=== PATIENT | female | born 1945 | race Hispanic/Latino ===

== ENCOUNTER 2018-04-08 09:05 | Emergency (ER) | payer OTHER ==
--- OUTSIDE RECORDS SUMMARY | 2018-04-08 09:09 | XMS REPORT | Clinical Summary ---
:1945 Author Organization [facility] Address [address] [place] [address] Care Team Providers Name Role Phone Maynor Soto DO Primary Care Provider Allergies Active Allergy Reactions Severity Noted Date Comments Ampicillin Anaphylaxis High 08/12/2016 No Known Drug Allergies 12/22/2015 Medications Medication Sig Dispensed Refills Start End Date Status Date amLODIPine (NORVASC) 5 Take 5 mg by 0 Active MG tablet mouth daily. hydrochlorothiazide Take 12.5 mg 0 Active (HYDRODIURIL) 12.5 MG by mouth tablet daily. ondansetron (ZOFRAN) 8 Take 8 mg by 0 Active MG tablet mouth every 8 (eight) hours as needed for nausea or vomiting. prochlorperazine Take 10 mg by 0 Active (COMPAZINE) 10 MG tablet mouth every 6 (six) hours as needed for nausea or vomiting. capecitabine (XELODA) Take by mouth 0 Active 500 mg chemo tablet 2 (two) times a day. traMADol (ULTRAM) 50 mg Take 50 mg by 0 10/08/19 Discontinued tablet mouth every 6 18 (six) hours as needed for moderate pain. lidocaine (XYLOCAINE) 5 Apply 50 g 0 07/19/19 % ointment topically as 8 18 needed for mild pain for up to 30 days. Apply to affected area as needed hydrocortisone Insert into 30 g 0 07/28/19 (PROCTOZONE-HC) 2.5 % the rectum 2 8 18 rectal cream (two) times a day for 10 days. traMADol (ULTRAM) 50 mg Take 1 tablet 40 tablet 0 10/18/19 tablet (50 mg total) 8 18 by mouth every 6 (six) hours as needed for moderate pain for up to 10 days. 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 Encounters Date Type Specialty Care Team Description 03/19/2018 Office Visit General Surgery Ethan Vail Anal stenosis (Primary Dx); MD Cristhian Anal fissure; Rectal pain; History of anal cancer 03/03/2018 Transcribe Orders Access Lisandro Bae Anal cancer (HCC) MD Boy (Primary Dx) 10/28/2017 Hospital Encounter Radiation Oncology Brandon Mesa MD 10/23/2017 Office Visit Gynecologic Cat Chiu Cancer of rectovaginal ( septum); Oncology MD Scott Hemorrhoids, unspecified hemorrhoid type 10/07/2017 Orders Only General Surgery Berta Pedraza MA 10/07/2017 Refill General Surgery Allie Francisco NP-C 10/01/2017 Office Visit General Surgery Ethan Vail History of anal MD Cristhian cancer (Primary Dx) Allie Francisco NP-C 09/17/2017 Documentation General Surgery Allie Francisco NP-C 09/15/2017 Orders Only General Surgery Ethan Vail MD 08/28/2017 Office Visit General Surgery Ethan Vail History of anal MD Cristhian cancer (Primary Dx) Allie Francisco NP-C 08/24/2017 Hospital Encounter Radiation Oncology Brandon Mesa MD 08/20/2017 Hospital Encounter Radiology Lisandro Bae Malignant neoplasm of anal canal; MD Boy Malignant neoplasm of overlapping sites of rectum, anus and anal canal 08/20/2017 Hospital Encounter Radiology Lisandro Bae Malignant neoplasm of anal canal; MD Boy Malignant neoplasm of overlapping sites of rectum, anus and anal canal 07/17/2017 Orders Only General Surgery Allie Francisco NP-C 06/18/2017 Office Visit General Surgery Ethan Vail Internal hemorrhoids with complication (Primary Dx); MD Cristhian History of anal cancer; Radiation adverse effect, sequela 06/12/2017 Office Visit Gynecologic Cat Chiu Cancer of Oncology MD Scott rectovaginal (septum) after 04/07/2017 Social History Tobacco Use Types Packs/Day Years Used Date Never Smoker Smokeless Tobacco: Never Used Alcohol Use Drinks/Week oz/Week Comments No Sex Assigned at Date Recorded Not on file Job Start Date Occupation Industry Not on file Not on file Not on file Travel History Travel Start Travel End No recent travel history available. Last Filed Vital Signs Vital Sign Reading Time Taken Blood Pressure 127/79 03/19/2018 8:44 AM [employer] Pulse 88 03/19/2018 8:44 AM [employer] Temperature 36.6 C (97.8 F) 08/28/2017 8:11 AM CDT Respiratory Rate 18 08/20/2017 10:05 AM CDT Oxygen Saturation - - Inhaled Oxygen Concentration - - Weight 79.8 kg (176 lb) 10/23/2017 8:24 AM CDT Height 152.4 cm (5') 10/23/2017 8:24 AM CDT Body Mass Index 34.37 10/23/2017 8:24 AM CDT Plan of Treatment Date Type Specialty Care Team Description 04/20/2018 Appointment Radiology Lisandro Bae MD [address] [place] [address]. [place] [address] [phone] 04/20/2018 Appointment Radiology Lisandro Bae MD [address] [place] [address]. [place] [address] [phone] 05/19/2018 Office Visit Gynecologic Oncology Cat Chiu MD [address] [facility] [address] [place] [address] [phone] 09/17/2018 Office Visit General Surgery Ethan Vail MD [address] [facility] [address] [place], [place] [id number] Health Maintenance Due Date Last Done Comments BREAST CANCER SCREENING 1997 COLON CANCER SCREENING 1997 SHINGLES VACCINES (1 of 2) 1997 PNEUMOCOCCAL-13 2012 INFLUENZA VACCINE 09/24/2017 12/22/2013, 11/23/2012 PNEUMOCOCCAL POLYSACCHARIDE VACCINE AGE 65 Completed 09/07/2012 AND OVER Procedures Procedure Name Priority Date/Time Associated Diagnosis Comments [facility] Routine 11/24/2017 CUSTOM ORDER [facility] Routine 10/30/2017 CUSTOM ORDER SURGICAL PATHOLOGY Routine 09/09/2017 REQUEST MRI PELVIS W WO Routine 08/20/2017 11:15 Malignant neoplasm Results for this CONTRAST AM CDT of anal canal procedure are in Malignant neoplasm the results of overlapping sites section. of rectum, anus and anal canal ESTIMATED GFR Routine 08/20/2017 10:08 Results for this AM CDT procedure are in the results section. POC CREATININE Routine 08/20/2017 10:08 Results for this AM CDT procedure are in the results section. PET CT SKULL BASE TO Routine 08/20/2017 9:12 Malignant neoplasm Results for this MID THIGH AM CDT of anal canal procedure are in Malignant neoplasm the results of overlapping sites section. of rectum, anus and anal canal POC GLUCOSE Routine 08/20/2017 7:57 Results for this AM CDT procedure are in the results section. after 04/07/2017 Results [facility] papsmear custom order (11/24/2017)Only the most recent of2 resultswithin the time period is included. Narrative Performed At Surgical pathology request (09/09/2017) Specimen Tissue Narrative Performed At MRI Pelvis W Wo Contrast (08/20/2017 11:15 AM CDT) Narrative Performed At EXAMINATION:MRI PELVIS W WO CONTRAST [facility] CLINICAL HISTORY:C21.1 Malignant neoplasm of anal canal, C21.8 Malignant neoplasm of overlapping sites of rectumanus and anal canal, c21.1 c21.8 TECHNIQUE: Multiplanar multisequence MR images of the pelvis were obtained pre - and post intravenous administration of Gadolinium. COMPARISON:PET/CT August 20, 2017, prior MRI 02/04/2017 IMPRESSION: 1.Reidentified is T2 hypointense fibrosis from 12-3 o'clock at the anorectal junction, compatible with treated disease. At this same level, there is focal area of somewhat rounded T2 hyperintensity (series 9 image 13), measuring 1.4 cm, previously measuring approximate 9 mm. And is therefore suspicious for recurrent disease, although there is no definite diffusion restriction or enhancement. Recommend correlation with direct inspection and biopsy . This is located at approximately 9 o'clock in the region of the anorectal junction, and there does appear to be some mass effect. 2.There is no suspicious adenopathy (N0 disease). 3.The urinary bladder is unremarkable. 4.The uterus is surgically absent. There is no adnexal mass. 5.No suspicious osseous lesions are seen. [facility]-[id number] Procedure Note Interface, Radiology Results - 08/21/2017 3:39 PM CDT EXAMINATION: MRI PELVIS W WO CONTRAST CLINICAL HISTORY: C21.1 Malignant neoplasm of anal canal, C21.8 Malignant neoplasm of overlapping sites of rectum anus and anal canal, c21.1 c21.8 TECHNIQUE: Multiplanar multisequence MR images of the pelvis were obtained pre - and post intravenous administration of Gadolinium. COMPARISON: PET/CT August 20, 2017, prior MRI 02/04/2017 IMPRESSION: 1. Reidentified is T2 hypointense fibrosis from 12-3 o'clock at the anorectal junction, compatible with treated disease. At this same level, there is focal area of somewhat rounded T2 hyperintensity (series 9 image 13), measuring 1.4 cm , previously measuring approximate 9 mm. And is therefore suspicious for recurrent disease, although there is no definite diffusion restriction or enhancement. Recommend correlation with direct inspection and biopsy. This is located at approximately 9 o'clock in the region of the anorectal junction, and there does appear to be some mass effect. 2. There is no suspicious adenopathy (N0 disease). 3. The urinary bladder is unremarkable. 4. The uterus is surgically absent. There is no adnexal mass. 5. No suspicious osseous lesions are seen. [facility]-[id number] Performing Organization Address City/State/Zipcode Phone Number [facility] [address] [place] [address] Estimated GFR (08/20/2017 10:08 AM CDT) GFR Non Af Amer 71 mL/min/1.73 m2 [facility] DEPARTMENT OF PATHOLOGY AND GENOMIC MEDICINE GFR Af Amer 86 mL/min/1.73 m2 [facility] DEPARTMENT OF Comment: PATHOLOGY AND GENOMIC Chronic kidney disease: <60 mL/min/1.73m2 MEDICINE Kidney failure: <15 mL/min/1.73m2 The estimated GFR is calculated from the IDMS-traceable Modification of Diet in Renal Disease Equation. The accuracy of the calculation is poor when the creatinine is normal. Calculated values >90 mL/min/1.73m2 are not reported. This equation has not been validated in children (<18 years), women, the elderly (>70 years), or ethnic groups other than Caucasians and Americans. Specimen Blood Performing Organization Address City/State/Zipcode Phone Number [facility] DEPARTMENT OF PATHOLOGY AND [address] [place] [phone] [facility] POC creatinine (08/20/2017 10:08 AM CDT) POC creatinine 0.8 0.5 - 0.9 mg/dl [facility] DEPARTMENT OF PATHOLOGY Comment: AND [facility] Meter ID: [id number] Jigsaw Operator: Minh Laguerre Specimen Blood Performing Organization Address City/State/Zipcode Phone Number [facility] DEPARTMENT OF PATHOLOGY AND [address] [place] [phone] [facility] PET/CT Skull Base To Mid Thigh (08/20/2017 9:12 AM CDT) Narrative Performed At PROCEDURE:PET CT SKULL BASE TO MID THIGH [facility] INDICATION:Restaging malignant neoplasm of anal canal, rectal cancer, subsequent treatment strategy. TECHNIQUE:Blood glucose measured at the time of injection was 98 mg/dL. The patient was then injected with 12.5 mCi of 18F-FDG, IV.Approximately one hour later, PET images were acquired from the skull base to the mid thighs. Corresponding, low dose, non-contrast CT scanning was performed as part of the attenuation correction process.Automated dose exposure control was utilized. COMPARISON:PET CT scan dated 02/04/2017. FINDINGS: Head and neck:No suspicious brain uptake.Normal uptake is seen in the visualized sinuses, orbits, nasopharynx, and oropharynx.Uptake by the larynx is normal.No suspicious neck lymph node uptake. Chest:No abnormal mediastinal, hilar, or axillary lymph node uptake.No suspicious pulmonary uptake.Stable subpleural 4 mm right middle lobe nodule. Abdomen:Stable 2.5 cm low-density lesion in the hepatic dome, compatible with a hemangioma.Normal uptake is seen in the stomach, spleen, pancreas, adrenal glands, and liver.No abnormal retroperitoneal or mesenteric lymph node uptake.Physiologic bowel uptake. Pelvis:Focal uptake in the inferior rectum demonstrates an SUV of 4.9.It previously measured 4.8.No abnormal pelvic sidewall or inguinal lymph node uptake.No abnormal lymph node uptake in the rectosigmoid mesentery. Review of the osseous structures demonstrates no suspicious uptake. IMPRESSION: 1.Stable appearance to the inferior rectum, with mild uptake.Lack of interval progression favors treated disease.Correlate with upcoming pelvic MRI. 2.No evidence for metastatic disease. [facility]-[id number] Procedure Note [facility], Radiology Results Incoming - 08/20/2017 9:33 AM CDT PROCEDURE: PET CT SKULL BASE TO MID THIGH INDICATION: Restaging malignant neoplasm of anal canal, rectal cancer, subsequent treatment strategy. TECHNIQUE: Blood glucose measured at the time of injection was 98 mg/dL. The patient was then injected with 12.5 mCi of 18F-FDG, IV. Approximately one hour later, PET images were acquired from the skull base to the mid thighs. Corresponding, low dose, non-contrast CT scanning was performed as part of the attenuation correction process. Automated dose exposure control was utilized. COMPARISON: PET CT scan dated 02/04/2017. FINDINGS: Head and neck: No suspicious brain uptake. Normal uptake is seen in the visualized sinuses, orbits, nasopharynx, and oropharynx. Uptake by the larynx is normal. No suspicious neck lymph node uptake. Chest: No abnormal mediastinal, hilar, or axillary lymph node uptake. No suspicious pulmonary uptake. Stable subpleural 4 mm right middle lobe nodule. Abdomen: Stable 2.5 cm low-density lesion in the hepatic dome, compatible with a hemangioma. Normal uptake is seen in the stomach, spleen, pancreas, adrenal glands, and liver. No abnormal retroperitoneal or mesenteric lymph node uptake. Physiologic bowel uptake. Pelvis: Focal uptake in the inferior rectum demonstrates an SUV of 4.9. It previously measured 4.8. No abnormal pelvic sidewall or inguinal lymph node uptake. No abnormal lymph node uptake in the rectosigmoid mesentery. Review of the osseous structures demonstrates no suspicious uptake. IMPRESSION: 1. Stable appearance to the inferior rectum, with mild uptake. Lack of interval progression favors treated disease. Correlate with upcoming pelvic MRI. 2. No evidence for metastatic disease. [facility]-[id number] Performing Organization Address City/State/Zipcode Phone Number [facility] [address] [place] [address] POC glucose (08/20/2017 7:57 AM CDT) POC glucose 98 65 - 99 mg/dL [facility] DEPARTMENT OF PATHOLOGY AND Comment: GENOMIC MEDICINE No Action Needed Meter ID: [id number] Jigsaw Operator: Annamarie Performing Organization Address City/State/Zipcode Phone Number [facility] DEPARTMENT OF PATHOLOGY AND [address] [place] [phone] GENOMIC MEDICINE after 04/07/2017 Insurance Payer Benefit Plan / Group Subscriber ID Type Phone Address MEDICARE MEDICARE PART A AND B xxxxxxxxxx Medicare [place], [place] [employer] xxxxxxxx Commercial ([place]) [place] [address] Advance Directives Patient has advance care planning documents on file. For more information, please contact:[facility] [id number] [place] [address]
--- OUTSIDE RECORDS SUMMARY | 2018-04-08 09:10 | XMS REPORT | Clinical Summary ---
:1945 Author Organization [facility] Address [address] [place] [address] Care Team Providers Name Role Phone Darell Soto Primary Care Provider Allergies No Known Allergies Medications No known medications Active Problems Problem Noted Date History of anal cancer 09/08/2017 Encounters Date Type Specialty Care Team Description 09/08/2017 Anesthesia Event Danielito Wong MD 09/08/2017 Surgery Ethan Vail,RECTUM MD Cristhian 09/08/2017 Hospital Encounter Ethan Vail History of anal MD Cristhian cancer 09/05/2017 Hospital Encounter Pre-Admission Resource, Oqmt Testing Preadmit Phone after 04/07/2017 Social History Tobacco Use Types [...] Vital Sign Reading Time Taken Blood Pressure 140/68 09/08/2017 6:50 PM CDT Pulse 68 09/08/2017 6:50 PM CDT Temperature 36.6 C (97.9 F) 09/08/2017 6:50 PM CDT Respiratory Rate 20 09/08/2017 6:50 PM CDT Oxygen Saturation 99% 09/08/2017 6:50 PM CDT Inhaled Oxygen Concentration - - Weight 81.6 kg (179 lb 14.3 oz) 09/08/2017 12:55 PM CDT Height 152.4 cm (5') 09/08/2017 12:55 PM CDT Body Mass Index 35.13 09/08/2017 12:55 PM CDT Plan of Treatment Not on file Procedures Procedure Name Priority Date/Time Associated Diagnosis Comments TISSUE EXAM AP Routine 09/08/2017 4:57 PM Results for this CDT procedure are in the results section. EUA,RECTUM 09/08/2017 2:24 PM History of anal CDT cancer Case Notes OK'D BY ROMINA [facility] V.V 4:10 09/02 POCT-GLUCOSE METER Routine 09/08/2017 12:48 PM CDT HEMOGLOBIN Routine 09/08/2017 12:26 PM CDT BUN AND CREATININE Routine 09/08/2017 12:26 PM CDT after 04/07/2017 Results Tissue Exam (09/08/2017 4:57 PM CDT) Case Report Surgical Pathology Report Case: [id number] [facility] Authorizing Provider:Ethan Vail MDCollected: 09/08/2017 1657 [facility] Ordering Location: [facility] Received: 09/09/2017 0806 SERVICES Pathologist: Gin Hare MD Specimen:Biopsy, Anus, anal biopies DIAGNOSIS ANUS, BIOPSIES: [facility] - FRAGMENTS OF SQUAMOCOLUMNAR JUNCTION [facility] - NEGATIVE FOR DYSPLASIA OR MALIGNANCY Signing Pathologist Direct Phone Line: [phone] COMMENT The biopsy displays [facility] extensive cautery artefact, [facility] precluding accurate evaluation. CPT Code(s) 98901 [facility] CLINICAL HISTORY History of anal cancer [facility] SPECIMEN SOURCE Anal biopsies [facility] GROSS DESCRIPTION The specimen is received in [facility] a formalin-filled container [facility] labeled with the patient's information and labeled "anal biopsies" and consists of a dried hemorrhagic tissue in two pieces measuring 0.4 and 0.6 cm, submitted in A1. CG/ew MICROSCOPIC DESCRIPTION PERFORMED [facility] Specimen Tissue - Biopsy, Anus Performing Organization Address City/State/Zipcode Phone Number [facility] [phone] [place] [address] CENTER POC-Glucose meter (09/08/2017 12:48 PM CDT) POC-Glucose Meter 94Comment: TESTED AT 70 - 110 mg/dL [facility] [address] [place] [address] Specimen Blood Performing Organization Address City/State/Zipcode Phone Number [address] [address] [phone] CENTER BUN and Creatinine (09/08/2017 12:26 PM CDT) BUN 19 7 - 21 mg/dL [facility] Creatinine 0.83 0.57 - 1.25 mg/dL [facility] EGFR 68Comment: ESTIMATED GFR IS mL/min/1.73 sq m [facility] NOT ACCURATE CREATININE [facility] CLEARANCE IN PREDICTING GLOMERULAR FILTRATION RATE. ESTIMATED GFR IS NOT APPLICABLE FOR DIALYSIS PATIENTS. Specimen Blood Performing Organization Address City/[facility]/Zipcode Phone Number [address] [address] [phone] [place] Hemoglobin (09/08/2017 12:26 PM CDT) Hemoglobin 12.5 11.2 - 15.7 GM/DL [facility] Specimen Blood Performing Organization Address City/State/Zipcode Phone Number [address] [address] CENTER after 04/07/2017 Insurance Payer Benefit Plan / Group Subscriber ID Type Phone Address MEDICARE MEDICARE A B xxxxxxxxxx Medicare MCR SUPPLEMENT/INDIVIDUAL [employer] xxxxxxxx [facility] [place] [address]
--- OUTSIDE RECORDS SUMMARY | 2018-04-08 09:10 | XMS REPORT ---
:1945 Author [facility] Address [address] [place] [address] [address] [place] [address] Care Team Providers Name Role Phone ASHKAN VAIL Unavailable Unavailable Problems This patient has no known problems. Allergies, Adverse Reactions, Alerts This patient has no known allergies or adverse reactions. Medications This patient has no known medications. Results Test Description Test Time Test Comments Text Results Atomic Results Result Comments TISSUE EXAM 2017-09-10 16:18:00 Surgical Pathology Report Case: [id number] Authorizing Provider: Ashkan Vail MD Collected: 09/08/2017 0217 Ordering Location: [facility] Received: 09/09/2017 0806 SERVICES Pathologist: Gin Hare MD Specimen: Biopsy, Anus, anal biopies ANUS, BIOPSIES: - FRAGMENTS OF SQUAMOCOLUMNAR JUNCTION - NEGATIVE FOR DYSPLASIA OR MALIGNANCY Signing Pathologist Direct Phone Line: [phone] signed by Gin Hare MD on 09/10/2017 at 4:18 PMThe biopsy displays extensive cautery artefact, precluding accurate evaluation. [id number] of anal cancerAnal biopsiesThe specimen is received in a formalin-filled container labeled with the patient's information and labeled "anal biopsies" and consists of a dried hemorrhagic tissue in two pieces measuring 0.4 and 0.6 cm, submitted in A1. CG/ew PERFORMED BUN AND CREATININE 2017-09-08 13:26:00 Test Item Value Reference Range Comments BLOOD UREA NITROGEN (BEAKER) 19 mg/dL 7-21 (test lrpz=673) CREATININE (BEAKER) (test 0.83 mg/dL 0.57-1.25 sdjq=763) EGFR (BEAKER) (test 68 mL/min/1.73 sq m ESTIMATED GFR IS NOT bnqq=[id number]) ACCURATE CREATININE CLEARANCE IN PREDICTING GLOMERULAR FILTRATION RATE. ESTIMATED GFR IS NOT APPLICABLE FOR DIALYSIS PATIENTS. [id number] 13:01:00 Test Item Value Reference Range Comments HEMOGLOBIN (MACROS) (test bkxu=707) 12.5 GM/DL 11.2-15.7 POCT-GLUCOSE [id number] 12:51:00 Test Item Value Reference Range Comments POC-GLUCOSE METER (MARCOS) 94 mg/dL 70-110 TESTED AT [place] [address] PATRICIA (test bigo=[id number]) [facility] [id number]
--- NOTE | 2018-04-08 10:32 | RAD REPORT ---
EXAM DESCRIPTION: RAD - Chest Pa And Lat (2 Views) - 04/08/2018 10:26 am CLINICAL HISTORY: COUGH Chest pain. COMPARISON: Chest Pa And Lat (2 Views) dated 08/29/2016; Chest Single View dated 06/28/2015; CHEST PA AN D LAT 2 VIEW dated 03/23/2015; CHEST SINGLE VIEW dated 07/13/2012 FINDINGS: The lungs are clear. Tortuous thoracic aorta is seen. Heart size is normal. No displaced f ractures. IMPRESSION: No acute finding suspected. Tortuous thoracic aorta.
--- NOTE | 2018-04-08 11:05 | ER ---
Nurse's Notes [facility] Name: Anitra Ross Age: 73 yrs Sex: Female : 1945 Arrival Date: 04/08/2018 Time: 09:08 Bed 20 Private MD: Maynor Soto H Diagnosis: Bronchitis, not specified as acute or chronic Presentation: 04/08 09:17 Presenting complaint: Patient states: cough, sore throat, decreased appetite and body ss aches x 3 days. Transition of care: patient was not received from another setting of care. Onset of symptoms was April 05, 2018. Risk Assessment: Do you want to hurt yourself or someone else? Patient reports no desire to harm self or others. Initial Sepsis Screen: Does the patient meet any 2 criteria? No. Patient's initial sepsis screen is negative. Does the patient have a suspected source of infection? No. Patient's initial sepsis screen is negative. Care prior to arrival: None. 09:17 Method Of Arrival: Ambulatory ss 09:17 Acuity: KRISTIE 4 ss Historical: - Allergies: 09:18 Bactrim; ss - PMHx: 09:18 Cancer; colon; Hypertension; hypomagnesia; ss - PSHx: 09:18 right foot surgery; Hysterectomy; Mastectomy, Left; Mastectomy, Right; ss - Immunization history:: Adult Immunizations up to date. - Social history:: Smoking status: Patient/guardian denies using tobacco. - Ebola Screening: : Patient denies exposure to infectious person Patient denies travel to an Ebola-affected area in the 21 days before illness onset. - Family history:: not pertinent. - Hospitalizations: : No recent hospitalization is reported. Screenin:30 Abuse screen: Denies threats or abuse. Denies injuries from another. Nutritional hb screening: No deficits noted. Tuberculosis screening: No symptoms or risk factors identified. Fall Risk None identified. Assessment: 09:30 General: Appears in no apparent distress. Behavior is calm, cooperative. Pain: Pain hb currently is 8 out of 10 on a pain scale. Neuro: Level of Consciousness is awake, alert, obeys commands, Oriented to person, place, time, situation. Cardiovascular: Capillary refill < 3 seconds Patient's skin is warm and dry. Respiratory: Airway is patent Respiratory effort is even, unlabored, Respiratory pattern is regular, symmetrical, Breath sounds are clear bilaterally. GI: No signs and/or symptoms were reported involving the gastrointestinal system. : No signs and/or symptoms were reported regarding the genitourinary system. EENT: No signs and/or symptoms were reported regarding the EENT system. Derm: Skin is intact, is healthy with good turgor, Skin is pink, warm \T\ dry. Musculoskeletal: No signs and/or symptoms reported regarding the musculoskeletal system. 10:30 Reassessment: Patient appears in no apparent distress at this time. No changes from aj1 previously documented assessment. Patient and/or family updated on plan of care and expected duration. Pain level reassessed. Patient is alert, oriented x 3, equal unlabored respirations, skin warm/dry/pink. Vital Signs: 09:18 BP 161 / 101; Pulse 72; Resp 16; Temp 97.9(O); Pulse Ox 97% on R/A; Weight 81.19 kg; ss Height 5 ft. 0 in. (152.40 cm); Pain 8/10; 09:18 Body Mass Index 34.96 (81.19 kg, 152.40 cm) ED Course: 09:08 Patient arrived in ED. sb2 09:09 Maynor Soto DO is Private Physician. sb2 09:17 Triage completed. ss 09:18 Arm band placed on right wrist. ss 09:26 Bill Llanes MD is Attending Physician. rn 09:28 Patient has correct armband on for positive identification. Bed in low position. Call hb light in reach. Side rails up X 1. 10:19 Patient moved to radiology via wheelchair. jb2 10:26 X-ray completed. Patient tolerated procedure well. Patient moved back from radiology. jb2 10:31 XRAY Chest Pa And Lat (2 Views) In Process Unspecified. EDMS 10:48 Strep swab sent to lab. dh3 11:10 No provider procedures requiring assistance completed. Patient did not have IV access hb during this emergency room visit. Administered Medications: No medications were administered Outcome: 11:05 Discharge ordered by . rn 11:10 Discharged to home ambulatory, with significant other. hb 11:10 Condition: stable 11:10 Discharge instructions given to patient, significant other, Instructed on discharge instructions, follow up and referral plans. medication usage, Demonstrated understanding of instructions, follow-up care, medications, Prescriptions given X 2. 11:14 Patient left the ED. aj1 Signatures: Dispatcher [employer] EDCally Salazar RN RN George Naqvi Roman, MD MD rn Smirch, Shelby, RN RN ss Baxter, Heather, RN RN hb Herrera, Deanna [facility] Amie Hollingsworth 2
--- NOTE | 2018-04-08 11:06 | EDPHYS ---
Physician Documentation [facility] Name: Anitra Ross Age: 73 yrs Sex: Female : 1945 Arrival Date: 04/08/2018 Time: 09:08 Bed 20 Private MD: Maynor Soto H ED Physician Bill Llanes HPI: 04/08 09:51 This 73 yrs old Female presents to ER via Ambulatory with complaints of Flu rn Symptoms. 09:51 The patient or guardian reports cough, flu symptoms. Onset: The symptoms/episode rn began/occurred 3 day(s) ago. Severity of symptoms: At their worst the symptoms were mild, in the emergency department the symptoms are unchanged. Modifying factors: The symptoms are alleviated by nothing, the symptoms are aggravated by nothing. The patient has experienced similar episodes in the past. Reports sent here by urgent care for cough and evaluation of pneumonia, reports 3 days of chills/cough/congestion, reports doesn't feel like previous pneumonia. . Historical: - Allergies: 09:18 Bactrim; ss - PMHx: 09:18 Cancer; colon; Hypertension; hypomagnesia; ss - PSHx: 09:18 right foot surgery; Hysterectomy; Mastectomy, Left; Mastectomy, Right; ss - Immunization history:: Adult Immunizations up to date. - Social history:: Smoking status: Patient/guardian denies using tobacco. - Ebola Screening: : Patient denies exposure to infectious person Patient denies travel to an Ebola-affected area in the 21 days before illness onset. - Family history:: not pertinent. - Hospitalizations: : No recent hospitalization is reported. ROS: 09:51 Constitutional: Negative for weight loss, Eyes: Negative for injury, pain, redness, and rn cardiovascular icu, Neck: Negative for injury, pain, and swelling, Cardiovascular: Negative for chest pain, palpitations, and edema, Respiratory: Negative for pleuritic chest pain Abdomen/GI: Negative for abdominal pain, nausea, vomiting, diarrhea, and constipation, MS/Extremity: Negative for injury and deformity, Skin: Negative for injury, rash, and discoloration, Neuro: Negative for headache, numbness, tingling, and seizure. Exam: 09:51 Constitutional: This is a well developed, well nourished patient who is awake, alert, rn and in no acute distress. Head/Face: Normocephalic, atraumatic. Eyes: Pupils equal round and reactive to light, extra-ocular motions intact. Lids and lashes normal. Conjunctiva and sclera are non-icteric and not injected. Cornea within normal limits. Periorbital areas with no swelling, redness, or edema. ENT: MMM, no stridor, no oral lesions Neck: + tender cervical LAD, bilateral Cardiovascular: Regular rate and rhythm. No pulse deficits. Respiratory: Lungs have equal breath sounds bilaterally, clear to auscultation. No increased work of breathing, no retractions or nasal flaring. Abdomen/GI: soft, non-tender Skin: Warm, dry MS/ Extremity: Pulses equal, no cyanosis. Neurovascular intact. Full, normal range of motion. Equal circumference. Neuro: Awake and alert, GCS 15, oriented to person, place, time, and situation. Cranial nerves II-XII grossly intact. Motor strength 5/5 in all extremities. Sensory grossly intact. Cerebellar exam normal. Normal gait. Vital Signs: 09:18 BP 161 / 101; Pulse 72; Resp 16; Temp 97.9(O); Pulse Ox 97% on R/A; Weight 81.19 kg; ss Height 5 ft. 0 in. (152.40 cm); Pain 8/10; 09:18 Body Mass Index 34.96 (81.19 kg, 152.40 cm) ss MDM: 09:26 Patient medically screened. rn 11:05 Differential Diagnosis: Bronchitis Influenza Upper Respiratory Infection Viral Syndrome rn Pneumonia. Data reviewed: vital signs, nurses notes, lab test result(s), radiologic studies, plain films, and as a result, I will discharge patient. Counseling: I had a detailed discussion with the patient and/or guardian regarding: the historical points, exam findings, and any diagnostic results supporting the discharge/admit diagnosis, lab results, radiology results, the need for outpatient follow up, to return to the emergency department if symptoms worsen or persist or if there are any questions or concerns that arise at home. Special discussion: I discussed with the patient/guardian in detail that at this point there is no indication for admission to the hospital. It is understood, however, that if the symptoms persist or worsen the patient needs to return immediately for re-evaluation. 04/08 09:19 Order name: Flu; Complete Time: 10:08 ss 04/08 10:08 Order name: Strep; Complete Time: 11:04 rn 04/08 10:08 Order name: XRAY Chest Pa And Lat (2 Views); Complete Time: 10:39 rn 04/08 11:04 Order name: Throat Culture EDMS Administered Medications: No medications were administered Disposition: 04/08/18 11:05 Discharged to Home. Impression: Bronchitis, not specified as acute or chronic. - Condition is Stable. - Discharge Instructions: Acute Bronchitis, Adult, Cough, Adult. - Prescriptions for Zithromax Z- Nacho 250 mg Oral Tablet - take 1 tablet by ORAL route as directed for 5 days Day 1 - take two (2) tablets one time. Day 2, 3, 4 , 5 take one (1) tablet once daily.; 6 tablet. Albuterol Sulfate 90 mcg/actuation - inhale 1-2 puff by INHALATION route every 4-6 hours; 1 Inhaler. - Medication Reconciliation Form, Thank You Letter, Antibiotic Education, Prescription Opioid Use form. - Follow up: Private Physician; When: As needed; Reason: Recheck today's complaints, Re-evaluation by your physician. - Problem is new. - Symptoms have improved. Signatures: Dispatcher [employer] EDCally Salazar RN RN aj1 Bill Llanes MD MD rn Smirch, Shelby, RN RN ss Corrections: (The following items were deleted from the chart) 11:14 11:05 04/08/2018 11:05 Discharged to Home. Impression: Bronchitis, not specified as aj1 acute or chronic. Condition is Stable. Forms are Medication Reconciliation Form, Thank You Letter, Antibiotic Education, Prescription Opioid Use. Follow up: Private Physician; When: As needed; Reason: Recheck today's complaints, Re-evaluation by your physician. Problem is new. Symptoms have improved. rn
[2018-04-08 11:19] VITALS: BP 161/101; TEMP 97.9; O2SAT 97
== END 2018-04-08 11:14 | disposition home or self-care (01) ==
LOC: ER 09:05
DX: J40 Bronchitis, not specified as acute or chronic (principal); I10 Essential (primary) hypertension; Z85.038 Personal history of other malignant neoplasm of large intestine
CPT/HCPCS: 71046; 87070; 87081; 87804; 99283

== ENCOUNTER 2018-09-26 08:40 | Emergency (ER) | payer OTHER ==
--- OUTSIDE RECORDS SUMMARY | 2018-09-26 08:43 | XMS REPORT ---
:1945 [facility] Organization [facility] Address [address] [place] [address] [address] [place] [address] Care Team Providers Name Role Phone ASHKAN VAIL Unavailable Unavailable Problems This patient has no known problems. Allergies, Adverse Reactions, Alerts This patient has no known allergies or adverse reactions. Medications This patient has no known medications. Results Test Description Test Time Test Comments Text Results Atomic Results Result Comments TISSUE EXAM 2017-09-10 16:18:00 Surgical Pathology Report Case: [id number] Authorizing Provider: Ashkan Vail MD Collected: 09/08/2017 1637 Ordering Location: [facility] Received: 09/09/2017 0806 SERVICES Pathologist: Gin Hare MD Specimen: Biopsy, Anus, anal biopies ANUS, BIOPSIES: - FRAGMENTS OF SQUAMOCOLUMNAR JUNCTION - NEGATIVE FOR DYSPLASIA OR MALIGNANCY Signing Pathologist Direct Phone Line: [phone] signed by Gin Hare MD on 09/10/2017 at 4:18 PMThe biopsy displays extensive cautery artefact, precluding accurate evaluation. [id number] of anal cancerAnal biopsiesThe specimen is received in a formalin-filled container labeled with the patient's information and labeled "anal biopsies" and consists of a dried hemorrhagic tissue in two pieces measuring 0.4 and 0.6 cm, submitted in A1. CG/ew PERFORMED BUN AND CREATININE 2017-09-08 13:26:00 Test Item Value Reference Range Comments BLOOD UREA NITROGEN (BEAKER) 19 mg/dL 7-21 (test xnyh=902) CREATININE (BEAKER) (test 0.83 mg/dL 0.57-1.25 sfyg=728) EGFR (BEAKER) (test 68 mL/min/1.73 sq m ESTIMATED GFR IS NOT mjih=3464) ACCURATE CREATININE CLEARANCE IN PREDICTING GLOMERULAR FILTRATION RATE. ESTIMATED GFR IS NOT APPLICABLE FOR DIALYSIS PATIENTS. [id number] 13:01:00 Test Item Value Reference Range Comments HEMOGLOBIN (MARCOS) (test epup=408) 12.5 GM/DL 11.2-15.7 POCT-GLUCOSE [id number] 12:51:00 Test Item Value Reference Range Comments POC-GLUCOSE METER (MARCOS) 94 mg/dL 70-110 TESTED AT [place] [address] [address] (test ykuc=9130) [facility] [id number]
--- OUTSIDE RECORDS SUMMARY | 2018-09-26 08:43 | XMS REPORT | Clinical Summary ---
:1945 Author Organization [facility] Address [address] [place] [address] Care Team Providers Name Role Phone Darell Soto Primary Care Provider Allergies No Known Allergies Medications No known medications Active Problems Problem Noted Date History of anal cancer 09/08/2017 Social History Tobacco Use Types Packs/Day Years Used Date Never Smoker Smokeless Tobacco: Never Used Alcohol Use Drinks/Week oz/Week Comments No Sex Assigned at Date Recorded Not on file Job Start Date Occupation Industry Not on file Not on file Not on file Travel History Travel Start Travel End No recent travel history available. Last Filed Vital Signs Not on file Plan of Treatment Not on file Results Not on fileafter 09/25/2017 Insurance Payer Benefit Plan / Group Subscriber ID Type Phone Address MEDICARE MEDICARE A B xxxxxxxxxx Medicare MCR SUPPLEMENT/INDIVIDUAL MUTUAL OF JC xxxxxxxx [employer] Brian [place] (Home) [place] [address]
--- OUTSIDE RECORDS SUMMARY | 2018-09-26 08:43 | XMS REPORT | Clinical Summary ---
:1945 Author Organization [facility] Address [address] [place] [address] Care Team Providers Name Role Phone Maynor [...] 50 mg Take 50 mg by 0 10/07/ Discontinued tablet mouth every 6 18 (six) hours as needed for moderate pain. traMADol (ULTRAM) 50 mg Take 1 tablet [...] Encounters Date Type Specialty Care Team Description 09/17/2018 Office Visit General Surgery Ethan Vail History of anal cancer ( Primary Dx); MD Cristhian Radiation proctitis; Internal hemorrhoids with complication; Anal fissure 06/30/2018 Office Visit Gynecologic Cat Chiu Malignant neoplasm Oncology MD Scott of rectovaginal (septum) (HCC) (Primary Dx) 04/28/2018 Transcribe Orders Access Lisandro Bae Anal linda (HCC) MD Boy (Primary Dx) 04/20/2018 Hospital Encounter Radiology Lisanrdo Bae Anal cancer (HCC) MD Boy 04/20/2018 Hospital Encounter Radiology Lisandro Bae Anal cancer (HCC) MD Boy 03/19/2018 Office Visit General Surgery Ethan Vail [...] Cristhian cancer (Primary Dx) Allie Francisco NP-C after 09/25/2017 Social History Tobacco Use Types Packs/Day Years [...] Vital Sign Reading Time Taken Blood Pressure 145/89 09/17/2018 8:11 AM CDT Pulse 72 09/17/2018 8:11 AM CDT Temperature 36.7 C (98.1 F) 09/17/2018 8:11 AM CDT Respiratory Rate - - Oxygen Saturation - - Inhaled Oxygen Concentration - - Weight 80.3 kg (177 lb) 06/30/2018 8:40 AM CDT Height 152.4 cm (5') 06/30/2018 8:40 AM CDT Body Mass Index 34.57 06/30/2018 8:40 AM CDT Plan of Treatment Date Type Specialty Care Team Description 10/27/2018 Appointment Radiology Lisandro Bae MD [address] [facility] [place] [address] [phone] 10/27/2018 Appointment Radiology Lisandro Bae MD [address] [facility] [facility] [place] [address] [phone] 12/31/2018 Office Visit Gynecologic Oncology Cat Chiu MD [address] [place] [address] [phone] 2019 Office Visit General Surgery Ethan Vail MD [address] [facility] [address] [place] [address] [phone] Health Maintenance Due Date Last Done Comments BREAST CANCER SCREENING 1997 COLONOSCOPY SCREENING 1997 SHINGLES VACCINES (#1) 1997 65+ PNEUMOCOCCAL VACCINE (2 of 2 - PPSV23) 2012 09/07/2012 INFLUENZA VACCINE 09/24/2018 12/22/2013, 11/23/2012 Procedures Procedure Name Priority Date/Time Associated Diagnosis Comments PAP (REFLEX TO HPV Routine 06/30/2018 12:00 Malignant neoplasm of Results for this DNA GENOTYPING AM CDT rectovaginal (septum) procedure are in 16,18 WHEN ASC-US) (HCC) the results section. MRI RECTAL W WO Routine 04/20/2018 11:53 Anal cancer (HCC) Results for this CONTRAST AM [facility] procedure are in the results section. ESTIMATED GFR Routine 04/20/2018 10:13 Results for this AM [facility] procedure are in the results section. POC CREATININE Routine 04/20/2018 10:13 Results for this AM [facility] procedure are in the results section. PET CT SKULL BASE Routine 04/20/2018 9:36 Anal cancer (HCC) Results for this TO MID THIGH AM [facility] procedure are in the results section. POC GLUCOSE Routine 04/20/2018 8:20 Results for this AM [facility] procedure are in the results section. [facility] Routine 11/24/2017 CUSTOM ORDER [facility] Routine 10/30/2017 CUSTOM ORDER after 09/25/2017 Results Pap (Reflex to HPV DNA Genotyping 16,18 when ASC-US) (06/30/2018 12:00 AM CDT) Pap smear, NILM [facility] ThinPrep Comment: DIAGNOSIS:Negative for intraepithelial lesion or malignancy ADEQUACY: Satisfactory for evaluation / Satisfactory for evaluation Scant cellularity. COMMENT:This Pap smear was screened with the assistance of the [employer] ThinPrep(TM) Imaging System and screened by a analysis intern. SPECIMEN SOURCE:Pap (Reflex to HPV DNA Genotyping 16,18 when ASC-US), VAGINAL CUFF CLINICAL INFORMATION: Provided Diagnosis Codes: C76.3 Cervicovaginal cytology should be considered a screening procedure subject to false negatives and false positives. Results are more reliable when a satisfactory sample is obtained on a regular repetitive basis, and should be interpreted together with past and current clinical data. ELECTRONICALLY SIGNED BY: Screened By: CHANEL King (ASCP) Case Electronically Signed 07/02/2018 Specimen Thin prep solution Performing Organization Address City/State/Zipcode Phone Number [facility] MRI Rectal W Wo Contrast (04/20/2018 11:53 AM [facility]) Specimen Narrative Performed At EXAMINATION:MRI RECTAL W WO CONTRAST [facility] CLINICAL HISTORY:C21.0 Malignant neoplasm of anusunspecified, c21.0 COMPARISON:08/20/2017 TECHNIQUE: Multiplanar, multisequence MRI of the pelvis with and without contrast material with a rectal cancer protocol. High-resolution T2 images were obtained. IMPRESSION: 1. Reidentified is some posttreatment fibrosis at the level of the anorectal junction from 12 o'clock to 3 o'clock (series 7, image 20). Previously described rounded T2 hyperintensity at a similar level appears less prominent on today's examination measuring 1.4 cm on coronal images compared to 2.3 on prior. May also represent some posttreatment effect. Direct visualization could be performed as indicated. 2. There are no suspicious mesorectal or extra mesorectal lymph nodes. There is a 4 mm nonspecific anterior mesorectal lymph node superiorly on the right (series 4, image 24) which is not seen on prior. Attention on follow-up 3. No evidence of extramural vascular invasion. 4.Hysterectomy. Trace fluid in the pelvis. 5.No focal marrow replacing abnormality. [facility]-[id number] Procedure Note Hm Interface, Radiology Results Incoming - 04/20/2018 4:34 PM [facility] EXAMINATION: MRI RECTAL W WO CONTRAST CLINICAL HISTORY: C21.0 Malignant neoplasm of anus unspecified, c21.0 COMPARISON: 08/20/2017 TECHNIQUE: Multiplanar, multisequence MRI of the pelvis with and without contrast material with a rectal cancer protocol. High-resolution T2 images were obtained. IMPRESSION: 1. Reidentified is some posttreatment fibrosis at the level of the anorectal junction from 12 o'clock to 3 o'clock (series 7, image 20). Previously described rounded T2 hyperintensity at a similar level appears less prominent on today's examination measuring 1.4 cm on coronal images compared to 2.3 on prior. May also represent some posttreatment effect. Direct visualization could be performed as indicated. 2. There are no suspicious mesorectal or extra mesorectal lymph nodes. There is a 4 mm nonspecific anterior mesorectal lymph node superiorly on the right ( series 4, image 24) which is not seen on prior. Attention on follow-up 3. No evidence of extramural vascular invasion. 4. Hysterectomy. Trace fluid in the pelvis. 5. No focal marrow replacing abnormality. [facility]-[id number] Performing Organization Address City/State/Zipcode Phone Number [facility] [address] [place] [address] Estimated GFR (04/20/2018 10:13 AM [facility]) Estimated GFR 64 mL/min/1.73 [facility] Comment: HOSPITAL CatergoryUnitsInterpretation G1 >=90 Normal or high G2 60-89Mildly decreased [id number] to moderately decreased O3i17-29Algmwmutkt to severely decreased G4 15-29Severely decreased G5 <15Kidney failure The eGFR was calculated using the Chronic Kidney Disease Epidemiology Collaboration (CKD-EPI) equation. Interpretation is based on recommendations of the National Kidney Foundation-Kidney Disease Outcomes Quality Initiative (NKF-KDOQI) published in 2014. Specimen Blood Performing Organization Address City/State/Zipcode Phone Number [facility] DEPARTMENT OF PATHOLOGY AND [address] [place] [address] [address] POC creatinine (04/20/2018 10:13 AM [facility]) POC creatinine 0.9 0.5 - 0.9 mg/dl [facility] Comment: HOSPITAL Meter ID: [id number] Plater Helper: Oc Hurd Specimen Blood Performing Organization Address City/[facility]/Zipcode Phone Number [facility] DEPARTMENT OF PATHOLOGY AND [address] [place] [address] [address] PET/CT Skull Base To Mid Thigh (04/20/2018 9:36 AM [facility]) Specimen Narrative Performed At PROCEDURE:PET CT SKULL BASE TO MID THIGH [facility] INDICATION:Restaging anal cancer.Subsequent treatment strategy. TECHNIQUE:Blood glucose measured at the time of injection was 108 mg/dL. The patient was then injected with 11.3 mCi of 18F-FDG, IV.Approximately one hour later, PET images were acquired from the skull base to the mid thighs. Corresponding, low dose, non-contrast CT scanning was performed as part of the attenuation correction process.Automated dose exposure control was utilized. COMPARISON:PET CT scan dated 08/20/2017. FINDINGS: Head and neck:No suspicious brain uptake.Normal uptake is seen in the visualized sinuses, orbits, nasopharynx, and oropharynx.Uptake by the larynx is normal.No suspicious neck lymph node uptake. Chest:No abnormal mediastinal, hilar, or axillary lymph node uptake.No suspicious pulmonary uptake. Abdomen:Normal uptake is seen in the stomach, spleen, pancreas, liver, and adrenal glands.No abnormal retroperitoneal or mesenteric lymph node uptake.No suspicious bowel uptake. Pelvis:Previously described focal uptake at the anorectal junction currently demonstrates an SUV of 4.4, relatively stable from prior.No suspicious new uptake.No abnormal pelvic sidewall or inguinal lymph node uptake. Review of the osseous structures demonstrates no suspicious uptake. IMPRESSION: 1.Stable study.No evidence for recurrent or metastatic anal cancer.Stable uptake in the lower rectum at the anorectal junction is suggestive of posttreatment inflammation. [facility]-[id number] Procedure Note Hm Interface, Radiology Results Incoming - 04/20/2018 10:12 AM [facility] PROCEDURE: PET CT SKULL BASE TO MID THIGH INDICATION: Restaging anal cancer. Subsequent treatment strategy. TECHNIQUE: Blood glucose measured at the time of injection was 108 mg/dL. The patient was then injected with 11.3 mCi of 18F-FDG, IV. Approximately one hour later, PET images were acquired from the skull base to the mid thighs. Corresponding, low dose, non-contrast CT scanning was performed as part of the attenuation correction process. Automated dose exposure control was utilized. COMPARISON: PET CT scan dated 08/20/2017. FINDINGS: Head and neck: No suspicious brain uptake. Normal uptake is seen in the visualized sinuses, orbits, nasopharynx, and oropharynx. Uptake by the larynx is normal. No suspicious neck lymph node uptake. Chest: No abnormal mediastinal, hilar, or axillary lymph node uptake. No suspicious pulmonary uptake. Abdomen: Normal uptake is seen in the stomach, spleen, pancreas, liver, and adrenal glands. No abnormal retroperitoneal or mesenteric lymph node uptake. No suspicious bowel uptake. Pelvis: Previously described focal uptake at the anorectal junction currently demonstrates an SUV of 4.4, relatively stable from prior. No suspicious new uptake. No abnormal pelvic sidewall or inguinal lymph node uptake. Review of the osseous structures demonstrates no suspicious uptake. IMPRESSION: 1. Stable study. No evidence for recurrent or metastatic anal cancer. Stable uptake in the lower rectum at the anorectal junction is suggestive of posttreatment inflammation. [facility]-[id number] Performing Organization Address City/[facility]/Zipcode Phone Number [facility] [address] [place] [address] POC glucose (04/20/2018 8:20 AM [facility]) POC glucose 108 (H) 65 - 99 mg/dL [facility] Comment: HOSPITAL No Action Needed Meter ID: [id number] Plater Helper: Thierry Sanches Specimen Performing Organization Address City/[facility]/Zipcode Phone Number [facility] DEPARTMENT OF PATHOLOGY AND [address] [place] [address] GENOMIC MEDICINE [address] [address] [facility] lab papsmear custom order (11/24/2017)Only the most recent of2 resultswithin the time period is included. Narrative Performed At after 09/25/2017 Insurance Payer Benefit Plan / Subscriber ID Effective Phone Address Type Group Dates MEDICARE MEDICARE PART xxxxxxxxxxx 2012-[place] Medicare A AND B nt MUTUAL OF M[employer] OF xxxxxxxx 2012-[facility] [employer] [address] nt ([facility] [place] [address] Advance Directives Patient has advance care planning documents on file. For more information, please contact:Eric Nye[address] [place] [address]
[2018-09-26] MEDS ORDERED: IPRATROPIUM BROM 0.5MG/2.5ML ONE (08:57)
[2018-09-26] MEDS ORDERED: ALBUTEROL 2.5 MG/3 ML NEB SOL ONE ×2 (08:57)
[2018-09-26] MEDS ORDERED: HYDROCODONE/CHLORPHEN 5 ML/OSYR ONE (08:58)
--- NOTE | 2018-09-26 10:26 | ER ---
Nurse's Notes [facility] Name: Anitra Ross Age: 73 yrs Sex: Female : 1945 Arrival Date: 09/26/2018 Time: 08:43 Bed 20 Private MD: Maynor Soto H Diagnosis: Bronchitis, not specified as acute or chronic Presentation: 09/26 08:59 Presenting complaint: Patient states: cough X 3 days,went to urgent care ,was iw diagnosed with bronchitis,started on steroids and abx, denies fever. Transition of care: patient was not received from another setting of care. Onset of symptoms was September 23, 2018. Risk Assessment: Do you want to hurt yourself or someone else? Patient reports no desire to harm self or others. Initial Sepsis Screen: Does the patient meet any 2 criteria? No. Patient's initial sepsis screen is negative. Does the patient have a suspected source of infection? No. Patient's initial sepsis screen is negative. Care prior to arrival: None. 08:59 Method Of Arrival: Ambulatory iw 08:59 Acuity: KRISTIE 3 iw Historical: - Allergies: 08:55 Bactrim; iw - PMHx: 08:55 Cancer; colon; Hypertension; hypomagnesia; iw - PSHx: 08:55 right foot surgery; Hysterectomy; Mastectomy, Left; Mastectomy, Right; iw - Ebola Screening: : Patient negative for fever greater than or equal to 101.5 degrees Fahrenheit, and additional compatible Ebola Virus Disease symptoms Patient denies exposure to infectious person Patient denies travel to an Ebola-affected area in the 21 days before illness onset No symptoms or risks identified at this time. Screenin:03 Abuse screen: Denies threats or abuse. Nutritional screening: No deficits noted. em Tuberculosis screening: No symptoms or risk factors identified. Fall Risk None identified. Assessment: 09:05 General: Appears in no apparent distress. uncomfortable, Behavior is calm, cooperative, em Denies fever. Pain: Complains of pain in right scapular area Pain currently is 5 out of 10 on a pain scale. Neuro: Level of Consciousness is awake, alert, obeys commands, Oriented to person, place, time, situation. Cardiovascular: Capillary refill < 3 seconds Patient's skin is warm and dry. Respiratory: Reports shortness of breath cough that is dry, pain with cough Airway is patent Respiratory effort is even, unlabored, Respiratory pattern is regular, symmetrical, Breath sounds are diminished bilaterally. Onset: The symptoms/episode began/occurred 3 days ago. GI: Patient currently denies nausea, vomiting. Derm: Skin is intact, is healthy with good turgor, Skin is pink, warm \T\ dry. Musculoskeletal: Capillary refill < 3 seconds, Range of motion: intact in all extremities. 09:32 Reassessment: Patient appears in no apparent distress at this time. wheeled to x-ray em dept. via wheelchair. 09:45 Reassessment: Patient states feeling better. Patient states symptoms have improved. em 10:30 Reassessment: Patient appears in no apparent distress at this time. Patient and/or em family updated on plan of care and expected duration. Pain level reassessed. Patient is alert, oriented x 3, equal unlabored respirations, skin warm/dry/pink. Patient states feeling better. Patient states symptoms have improved. Vital Signs: 08:59 BP 177 / 110; Pulse 92; Resp 18 S; Temp 98.0(TE); Pulse Ox 97% on R/A; iw 09:05 BP 175 / 90; em 10:30 BP 139 / 74; Pulse 104; Resp 20; Pulse Ox 97% on R/A; em ED Course: 08:43 Patient arrived in ED. mr 08:44 Maynor Soto DO is Private Physician. mr 08:44 Jose Ac, RN is Primary Nurse. sg 08:45 Stacie Adler FNP-C is [facility]. snw 08:45 Bill Llanes MD is Attending Physician. snw 08:51 Ho Rao LVN is Primary Nurse. em 08:59 Arm band placed on. iw 09:02 Triage completed. iw 09:03 Patient has correct armband on for positive identification. Bed in low position. Call em light in reach. Adult w/ patient. Pulse ox on. NIBP on. 09:08 Radiology exam delayed due to patient receiving breathing treatment at this time. mh1 09:37 Chest Pa And Lat (2 Views) XRAY In Process Unspecified. EDMS 10:25 Maynor Soto DO is Referral Physician. snw 10:57 No provider procedures requiring assistance completed. Patient did not have IV access em during this emergency room visit. Administered Medications: 09:03 Drug: Tussionex Pennkinetic ER 5 ml Route: PO; em :45 Follow up: Response: No adverse reaction; Marked relief of symptoms em 09: Drug: Albuterol - atroVENT (3:1) (2.5 mg - 0.5 mg) 3 ml Route: Nebulizer; em :45 Follow up: Response: No adverse reaction; Marked relief of symptoms em Outcome: 10:25 Discharge ordered by MD. snw 10:57 Discharged to home ambulatory, with family. em : Condition: good 10:57 Discharge instructions given to patient, family, Instructed on discharge instructions, follow up and referral plans. medication usage, Demonstrated understanding of instructions, follow-up care, medications, Prescriptions given X 3. 10:58 Patient left the ED. em Signatures: Dispatcher [employer] EDDE Jose Ac RN RN sg Stacie Adler, DRUM SPRAYER-C DRUM SPRAYER-Csnw Cris Ashley Martha [facility] Ho Rao, NAIL MAKING MACHINE TENDER NAIL MAKING MACHINE TENDER em Bernadine Chand RN RN iw
--- NOTE | 2018-09-26 10:26 | EDPHYS ---
Physician Documentation [facility] Name: Anitra Ross Age: 73 yrs Sex: Female : 1945 Arrival Date: 09/26/2018 Time: 08:43 Bed 20 Private MD: Maynor Soto H ED Physician Bill Llanes HPI: 09/26 09:10 This 73 yrs old Female presents to ER via Ambulatory with complaints of Cough. snw 09:10 The patient or guardian reports cough, difficulty breathing. Onset: The snw symptoms/episode began/occurred suddenly, 3 day(s) ago, and became persistent. Severity of symptoms: At their worst the symptoms were moderate, severe. Associated signs and symptoms: Pertinent positives: fever on day one, cough has interrupted sleep and pt states she is tired.. The patient has not experienced similar symptoms in the past. The patient has been recently seen by a physician: The patient has been recently seen at an urgent care, given IM injection. Pt's Spouse is "getting over" recent URI. Historical: - Allergies: 08:55 Bactrim; iw - PMHx: 08:55 Cancer; colon; Hypertension; hypomagnesia; iw - PSHx: 08:55 right foot surgery; Hysterectomy; Mastectomy, Left; Mastectomy, Right; iw - Ebola Screening: : Patient negative for fever greater than or equal to 101.5 degrees Fahrenheit, and additional compatible Ebola Virus Disease symptoms Patient denies exposure to infectious person Patient denies travel to an Ebola-affected area in the 21 days before illness onset No symptoms or risks identified at this time. ROS: 09:09 Eyes: Negative for injury, pain, redness, and discharge, ENT: Negative for injury, snw pain, and discharge, Neck: Negative for injury, pain, and swelling, Cardiovascular: Negative for chest pain, palpitations, and edema. 09:09 Abdomen/GI: Negative for abdominal pain, nausea, vomiting, diarrhea, and constipation, Back: Negative for injury and pain, : Negative for injury, bleeding, discharge, and swelling, MS/Extremity: Negative for injury and deformity, Skin: Negative for injury, rash, and discoloration, Neuro: Negative for headache, weakness, numbness, tingling, and seizure. 09:09 Constitutional: Positive for fatigue, malaise. 09:09 Respiratory: Positive for cough, shortness of breath. Exam: 09:07 Constitutional: This is a well developed, well nourished patient who is awake, alert, snw and in no acute distress. Head/Face: Normocephalic, atraumatic. Eyes: Pupils equal round and reactive to light, extra-ocular motions intact. Lids and lashes normal. Conjunctiva and sclera are non-icteric and not injected. Cornea within normal limits. Periorbital areas with no swelling, redness, or edema. ENT: Nares patent. No nasal discharge, no septal abnormalities noted. Tympanic membranes are normal and external auditory canals are clear. Oropharynx with no redness, swelling, or masses, exudates, or evidence of obstruction, uvula midline. Mucous membranes moist. Neck: Trachea midline, no thyromegaly or masses palpated, and no cervical lymphadenopathy. Supple, full range of motion without nuchal rigidity, or vertebral point tenderness. No Meningismus. Chest/axilla: Normal chest wall appearance and motion. Nontender with no deformity. No lesions are appreciated. 09:07 Abdomen/GI: Soft, non-tender, with normal bowel sounds. No distension or tympany. No guarding or rebound. No evidence of tenderness throughout. Back: No spinal tenderness. No costovertebral tenderness. Full range of motion. Skin: Warm, dry with normal turgor. Normal color with no rashes, no lesions, and no evidence of cellulitis. MS/ Extremity: Pulses equal, no cyanosis. Neurovascular intact. Full, normal range of motion. Neuro: Awake and alert, GCS 15, oriented to person, place, time, and situation. Cranial nerves II-XII grossly intact. Motor strength 5/5 in all extremities. Sensory grossly intact. Cerebellar exam normal. Normal gait. Psych: Awake, alert, with orientation to person, place and time. Behavior, mood, and affect are within normal limits. 09:07 Cardiovascular: Rate: tachycardic, Heart sounds: normal. 09:07 Respiratory: the patient does not display signs of respiratory distress, Respirations: shallow respirations, tachypnea, that is moderate, Breath sounds: mild decrease in breath sounds to left lower lobe. Vital Signs: 08:59 BP 177 / 110; Pulse 92; Resp 18 S; Temp 98.0(TE); Pulse Ox 97% on R/A; iw 09:05 BP 175 / 90; em 10:30 BP 139 / 74; Pulse 104; Resp 20; Pulse Ox 97% on R/A; em MDM: 08:46 Patient medically screened. snw 10:54 Data reviewed: vital signs, nurses notes. Data interpreted: Pulse oximetry: on room air snw is 97 %. Interpretation: normal. Counseling: I had a detailed discussion with the patient and/or guardian regarding: the historical points, exam findings, and any diagnostic results supporting the discharge/admit diagnosis, the presence of at least one elevated blood pressure reading (>120/80) during this emergency department visit, radiology results, the need for outpatient follow up, to return to the emergency department if symptoms worsen or persist or if there are any questions or concerns that arise at home. Response to treatment: the patient's symptoms have markedly improved after treatment. Special discussion: I have referred the patient to see his PCP for further evaluation of high blood pressure. Based on the history and exam findings, there is no indication for further emergent testing or inpatient evaluation. I discussed with the patient/guardian the need to see the primary care provider for further evaluation of the symptoms. 09/26 08:56 Order name: Chest Pa And Lat (2 Views) XRAY snw Administered Medications: 09:03 Drug: Tussionex Pennkinetic ER 5 ml Route: PO; em 09:45 Follow up: Response: No adverse reaction; Marked relief of symptoms em 09:03 Drug: Albuterol - atroVENT (3:1) (2.5 mg - 0.5 mg) 3 ml Route: Nebulizer; em 09:45 Follow up: Response: No adverse reaction; Marked relief of symptoms em Disposition: 11:27 Co-signature as Attending Physician, Bill Llanes MD. rn Disposition: 09/26/18 10:25 Discharged to Home. Impression: Bronchitis, not specified as acute or chronic. - Condition is Stable. - Discharge Instructions: Acute Bronchitis, Adult, Hypertension, How to Use an Inhaler, Cool Mist Vaporizer, Cough, Adult. - Prescriptions for Tylenol- Codeine #3 300-30 mg Oral Tablet - take 1 tablet by ORAL route every 6 hours As needed; 12 tablet. Prednisone 20 mg Oral Tablet - take 2 tablet by ORAL route once daily for 5 days; 10 tablet. Albuterol Sulfate 90 mcg/actuation - inhale 1-2 puff by INHALATION route every 4-6 hours; 1 Inhaler. - Medication Reconciliation Form, Thank You Letter, Antibiotic Education, Prescription Opioid Use form. - Follow up: Maynor Soto DO; When: 2 - 3 days; Reason: Recheck today's complaints, Continuance of care, Re-evaluation by your physician. Follow up: Emergency Department; When: As needed; Reason: Worsening of condition. Signatures: Dispatcher [employer] EDMS Stacie Adler, GOURMET COFFEE ATTENDANT-C GOURMET COFFEE ATTENDANT-Csnw Ho Rao, SCREENING SPECIALIST SCREENING SPECIALIST em Bernadine Chand RN RN iw Bill Llanes MD MD buffing turner and counter: (The following items were deleted from the chart) 10:58 10:25 09/26/2018 10:25 Discharged to Home. Impression: Bronchitis, not specified as em acute or chronic. Condition is Stable. Forms are Medication Reconciliation Form, Thank You Letter, Antibiotic Education, Prescription Opioid Use. Follow up: Maynor Soto; When: 2 - 3 days; Reason: Recheck today's complaints, Continuance of care, Re-evaluation by your physician. Follow up: Emergency Department; When: As needed; Reason: Worsening of condition. snw
[2018-09-26 11:04] VITALS: TEMP 98; O2SAT 97
[2018-09-26 11:05] VITALS: BP 139/74
--- NOTE | 2018-09-26 11:30 | RAD REPORT ---
EXAM DESCRIPTION: Lise Page (2 Views)09/26/2018 9:39 am CLINICAL HISTORY: Cough COMPARISON: 2016 FINDINGS: The lungs appear clear of acute infiltrate. The heart is normal size The aorta is tortuous/ectatic IMPRESSION: No acute abnormalities displayed
== END 2018-09-26 10:58 | disposition home or self-care (01) ==
LOC: ER 08:40
DX: J40 Bronchitis, not specified as acute or chronic (principal); I10 Essential (primary) hypertension; Z85.038 Personal history of other malignant neoplasm of large intestine; Z90.13 Acquired absence of bilateral breasts and nipples
CPT/HCPCS: 71046; 94640; 99284

== ENCOUNTER 2023-02-01 12:19 | Emergency (ER) | payer OTHER ==
[2023-02-01] MEDS ORDERED: HYDROCODONE/APAP 5/325 MG TAB ONE (13:12)
--- NOTE | 2023-02-01 14:16 | RAD REPORT ---
EXAM DESCRIPTION: RAD - Femur Right - 02/01/2023 1:39 pm CLINICAL HISTORY: PAIN COMPARISON: No comparisons TECHNIQUE: Right femur, 2 views. FINDINGS: No fracture is identified. There is no dislocation or periosteal reaction noted. Mild hip and moderate knee joint degenerative changes. No acute or suspicious bony finding. IMPRESSION: No acute osseous abnormality. Degenerative changes as above.
--- NOTE | 2023-02-01 14:18 | RAD REPORT ---
EXAM DESCRIPTION: RAD - Knee Right 3 View - 02/01/2023 1:39 pm CLINICAL HISTORY: PAIN COMPARISON: No comparisons TECHNIQUE: Right knee, 3 views. FINDINGS: No fracture, dislocation or periosteal reaction.[id number] degenerative changes. No joint space narrowing. Mineralization along the medial and lateral menisci. Clinical concerns for internal derangement or occult bony injury could be further assessed with MR im aging. IMPRESSION: No acute osseous abnormality. Arthritic changes and meniscal mineralization as above, ra ises concern for depositional arthropathy such as CPPD.
--- NOTE | 2023-02-01 14:19 | RAD REPORT ---
EXAM DESCRIPTION: RAD - Tibia Fib Right W Comparison - 02/01/2023 1:39 pm CLINICAL HISTORY: PAIN COMPARISON: No comparisons TECHNIQUE: Right tibia and fibula, 2 views. FINDINGS: No fracture is identified. There is no dislocation or periosteal reaction noted. No acute or suspicious bony finding. Moderate calcaneal spur. Knee degenerative changes and soft tissue mineralization, better evaluated on the dedicated knee radi ographs of the same day. No foreign body or other soft tissue abnormality. IMPRESSION: No acute osseous abnormality. Chronic findings as above.
--- NOTE | 2023-02-01 14:27 | ER ---
Nurse's Notes [facility] Name: Anitra Ross Age: 77 yrs Sex: Female : 1945 Arrival Date: 02/01/2023 Time: 12:19 Bed 12 Private MD: Diagnosis: Contusion of left lower leg Presentation: 02/01 12:31 Chief complaint: Slipped on sideboard getting out of truck 1 week ago, c/o right knee hb and upper thigh pain 8/10. Coronavirus screen: At this time, the client does not indicate any symptoms associated with coronavirus-19. Ebola Screen: No symptoms or risks identified at this time. Initial Sepsis Screen: Does the patient meet any 2 criteria? No. Patient's initial sepsis screen is negative. Does the patient have a suspected source of infection? No. Patient's initial sepsis screen is negative. Risk Assessment: Do you want to hurt yourself or someone else? Patient reports no desire to harm self or others. Onset of symptoms was January 24, 2023. 12:31 Method Of Arrival: Wheelchair hb 12:31 Acuity: KRISTIE 4 hb Historical: - Allergies: 12:33 Bactrim; hb - PMHx: 12:33 Cancer; colon; Hypertension; hypomagnesia; hb - Immunization history:: Adult Immunizations up to date. - Social history:: Smoking status: Patient denies any tobacco usage or history of. Vital Signs: 12:31 BP 101 / 79; Pulse 82; Resp 16; Temp 97.3(TE); Pulse Ox 99% on R/A; Weight 71.67 kg; hb Height 5 ft. 0 in. ; Pain 8/10; 12:31 Body Mass Index 30.86 (71.67 kg, 152.4 cm) hb 12:31 Pain Scale: Adult hb ED Course: 12:23 Patient arrived in ED. im 12:33 Triage completed. hb 12:33 Irma Tony PA-C is PHCP. sb4 12:33 Jaison Marcelino is Attending Physician. sb4 12:33 Arm band placed on. hb 13:41 Tib Fib Right W Compar XRAY In Process Unspecified. EDMS 13:41 Knee Right 3 View XRAY In Process Unspecified. EDMS 13:41 Femur Right XRAY In Process Unspecified. EDMS Administered Medications: 12:58 Drug: HYDROcodone-acetaminophen PO 5 mg-325 mg 1 tabs PO once Route: PO; Outcome: 14:26 Discharge ordered by MD. panchal 14:55 Patient left the ED. Signatures: Dispatcher [employer] EDMS Roseanne Granados RN RN Irma Ramos, PAJulietteC PACaitie sb4 Morelia Rodriguez
--- NOTE | 2023-02-01 14:27 | EDPHYS ---
Physician Documentation [facility] Name: Anitra Ross Age: 77 yrs Sex: Female : 1945 Arrival Date: 02/01/2023 Time: 12:19 Bed 12 Private MD: ED Physician Jaison Marcelino HPI: 02/02 11:50 This 77 yrs old Female presents to ER via Wheelchair with complaints of Fall sb4 Injury, Leg Pain. 11:50 Patient states that about a week ago she slipped on the stepping rail of a truck sb4 getting out because it was raining and slippery. She states that she hit her right leg in several places going down and onto the concrete. She states that she has had soreness in her thigh knee and pak that are progressively getting worse. She wanted to make sure that nothing was broken. She denies any numbness or tingling. She has been taking Tylenol for the pain and has been applying heat, no ice. Historical: - Allergies: 02/01 12:33 Bactrim; hb - PMHx: 12:33 Cancer; colon; Hypertension; hypomagnesia; hb - Immunization history:: Adult Immunizations up to date. - Social history:: Smoking status: Patient denies any tobacco usage or history of. ROS: 02/02 11:50 Constitutional: Negative for fever, chills, and weight loss, sb4 MS/extremity: Positive for Right thigh, knee, and pak pain, 11:51 All other systems are negative, sb4 Exam: 11:51 Constitutional: This is a well developed, well nourished patient who is awake, alert, sb4 and in no acute distress. Head/Face: Normocephalic, atraumatic. Eyes: Extra-ocular motions intact. Periorbital areas with no swelling, redness, or edema. ENT: Mucous membranes moist. Cardiovascular: Regular rate and rhythm with a normal S1 and S2. Respiratory: Lungs have equal breath sounds bilaterally, clear to auscultation and percussion. No rales, rhonchi or wheezes noted. No increased work of breathing, no retractions or nasal flaring. Abdomen/GI: Soft, non-tender, no distension. Neuro: Awake and alert, GCS 15, oriented to person, place, time, and situation. Motor strength 5/5 in all extremities. Sensory grossly intact. 11:51 Musculoskeletal/extremity: ROM: intact in all extremities, Circulation is intact in all extremities. Pulses: are normal with no appreciated deficits, Perfusion: the patient is normally perfused throughout, Perfusion: the extremity is normally perfused throughout, Sensation intact. Joints: All joints appear normal with full range of motion. Weight bearing: can bear weight with assistance only, Mild tenderness on anterior aspect of right thigh, knee, and lateral pak. 11:51 Skin: injury, contusion(s), that are superficial, of the lateral aspect of right calf, Vital Signs: 02/01 12:31 BP 101 / 79; Pulse 82; Resp 16; Temp 97.3(TE); Pulse Ox 99% on R/A; Weight 71.67 kg; hb Height 5 ft. 0 in. ; Pain 8/10; 12:31 Body Mass Index 30.86 (71.67 kg, 152.4 cm) hb 12:31 Pain Scale: Adult hb MDM: 12:34 Patient medically screened. sb4 13:33 Independent interpretation of the following test(s) in the Emergency Department X-Ray: sb4 My interpretation is my interpretation of the femur, knee, and tib/fib xray images are no acute fracture or dislocation. 02/02 11:51 Differential diagnosis: contusion, fracture, sprain, strain. Data reviewed: vital sb4 signs, nurses notes, radiologic studies, and as a result, I will discharge patient. Care significantly affected by the following chronic conditions: Hypertension, Cancer. Counseling: I had a detailed discussion with the patient and/or guardian regarding the historical points, exam findings, and any diagnostic results supporting the discharge/admit diagnosis, radiology results, to return to the emergency department if symptoms worsen or persist or if there are any questions or concerns that arise at home. 02/01 12:46 Order name: Tib Fib Right W Compar XRAY; Complete Time: 14:19 sb4 02/01 12:46 Order name: Knee Right 3 View XRAY; Complete Time: 14:18 sb4 02/01 12:46 Order name: Femur Right XRAY; Complete Time: 14:16 sb4 Administered Medications: 02/01 12:58 Drug: HYDROcodone-acetaminophen PO 5 mg-325 mg 1 tabs PO once Route: PO; hb Disposition Summary: 02/01/23 14:26 Discharge Ordered Notes: Location: Home sb4 Problem: new sb4 Symptoms: have improved sb4 Condition: Stable sb4 Diagnosis - Contusion of left lower leg sb4 Followup: sb4 - With: Emergency Department - When: As needed - Reason: Trouble breathing, Worsening of condition Discharge Instructions: - Discharge Summary Sheet sb4 - Muscle Pain, Adult sb4 - Contusion, [id number] sb4 Forms: - Medication Reconciliation Form sb4 - Thank You Letter sb4 - Antibiotic Education sb4 - Prescription Opioid Use sb4 - Patient Portal Instructions sb4 - Leadership Thank You Letter sb4 Prescriptions: - Tramadol 50 mg Oral Tablet - take 1 tablet ORAL route every 8 hours as needed; 12 tablet; Refills: 0, sb4 Product Selection Permitted Addendum: 02/10/2023 09:19 I reviewed the patient's care provided by the Advanced Practice Provider and agree with emiliano still the diagnosis and treatment plan. Signatures: Dispatcher [employer] Roseanne Haji RN RN hb Brown, Sophia, PA-C PA-C sb4 [email or web address]
[2023-02-01 14:59] VITALS: BP 101/79; TEMP 97.3; O2SAT 99
== END 2023-02-01 14:55 | disposition home or self-care (01) ==
LOC: ER 12:19
DX: S80.11XA Contusion of right lower leg, initial encounter (principal); I10 Essential (primary) hypertension; Z88.3 Allergy status to other anti-infective agents
CPT/HCPCS: 99282

== ENCOUNTER 2024-05-03 06:45 | Day surgery (SDC) | payer OTHER ==
[2024-04-30 10:04] LABS: Absolute Lymphocytes (CBC) 1.4 K/uL (0.7-4.9); Absolute Monocytes 0.2 K/uL (0.1-1.3); Absolute Neutrophil 2.7 K/uL (1.8-8.0); Basophils % 0.6 % (0-1.3); Eosinophils % 0.8 % (0-4.4); Hemoglobin 13.2 g/dL (12.0-15.0); Lymphocytes % 32.9 % (15.3-44.8); MCH 31.2 pg (27.0-35.0); MCHC 33.9 g/dL (32.0-36.0); MCV 91.8 fL (80-100); MPV 7.6 fL (7.6-11.3); Monocytes % 5.2 % (3.3-12.3); Neutrophils % 60.5 % (41.7-73.7); Nucleated Red Blood Cells % 0.1 % (0-0); Platelets 235 thou/uL (152-406); RBC Red Blood Cell Count 4.25 M/uL (3.86-4.86); Red Cell Distribution Width 14.4 % (12.1-15.2)
--- NOTE | 2024-04-30 10:09 | RAD REPORT ---
Procedure: Chest Pa And Lat (2 Views) HISTORY: Preop for cardiac catheterization COMPARISON: 2019 FINDINGS: The lungs appear clear of acute infiltrate. No significant pleural effusion noted. The heart is normal size.. The aorta is tortuous/ectatic IMPRESSION: No acute abnormality is displayed.
[2024-04-30 10:22] LABS: Anion Gap 10.6 mEq/L (5.0-15.0); Potassium 4.6 mEq/L (3.5-5.1)
[2024-04-30 10:24] LABS: PTT, Activated Partial Thromb 32.1 SECONDS (24.3-36.9); Protime INR 0.96
[2024-05-03] MEDS ORDERED: NITROGLYCERIN/D5W 50 MG/250 ML BTL IV ONE (07:12)
[2024-05-03] MEDS ORDERED: HEPA 1000U/500MLS 2,000 UNIT/1,000 ML BAG IV ONE (07:12)
[2024-05-03] MEDS ORDERED: LIDOCAINE 1% 20 ML MDV ONE (07:13)
[2024-05-03] MEDS ORDERED: ATROPINE SULF 1 MG/10 ML SYR IV ONE (07:13)
[2024-05-03] MEDS ORDERED: ASPIRIN 325 MG TAB ONE (07:13)
[2024-05-03] MEDS ORDERED: CLOPIDOGREL 75 MG TABLET ONE (07:13)
[2024-05-03] MEDS ORDERED: TICAGRELOR 90 MG TABLET PO ONE (07:13)
[2024-05-03] MEDS ORDERED: HEPARIN 5000 UNIT/ML 1 ML VIAL ONE (07:13)
[2024-05-03] MEDS ORDERED: HEPARIN 10,000 UNIT/10 ML VIAL IV ONE (07:13)
[2024-05-03] MEDS ORDERED: VERAPAMIL HCL 10 MG/4 ML VIAL IV ONE (07:13)
[2024-05-03] MEDS ORDERED: MIDAZOLAM HCL 2 MG/2 ML INJ ONE (07:34)
[2024-05-03] MEDS ORDERED: FENTANYL CITR 100 MCG/2 ML ONE (07:35)
[2024-05-03] MEDS: NA CHLORIDE 0.9% 500 ML ONE (08:35)
[2024-05-03 09:21] VITALS: TEMP 97.9
[2024-05-03 10:50] VITALS: BP 131/70; O2SAT 96
--- NOTE | 2024-05-03 13:53 | OP ---
Date of Procedure: 05/03/2024 Surgeon: SINTIA SLAETR Procedures Performed: 1. Selective coronary angiogram. 2. Left heart catheterization. Indication: Chest pain with positive stress test. Access: Right radial artery 6-Hungarian closed with TR band. Complications: None. Bleeding: Less than 50 mL. Anesthesia: Total sedation time is 45 minutes. Used fentanyl and Versed. Description Of Procedure: After risks, benefits, and alternatives were explained, patient agreed to procedure and signed informed consent. The patient was brought into cardiac catheterization laborato , prepped and draped in sterile fashion. Then, I accessed right radial artery using pediatric micr opuncture kit, placed 6-Hungarian slender sheath and took 5-Hungarian Stuart 4.0 catheter over a J-wire into the aortic root across the aortic valve, measured the LVEDP. Pullback did not record any gradient, then engaged RCA, took standard views, and then in the left main, took standard views, and then remov ed the catheter and the sheath, placed TR band with good hemostasis. Findings: 1. Left main, large and normal. 2. LAD, large with proximal 20%, rest of it is normal. 3. Left circumflex is normal. 4. RCA has 30% distal RCA stenosis. Rest of it is normal. 5. LVEDP is normal at 10 mmHg. Conclusion: 1. Mild nonobstructive coronary artery disease. 2. Normal LVEDP. Recommendation: Medical management. /MODL Voice ID: [id number] Report ID: [id number]
--- NOTE | 2024-05-04 11:18 | EKG ---
Test Date: 2024-04-30 Test Time: 10:52:57 Internet Developer: AL MEASUREMENT RESULTS: Intervals: Rate: 55 TX: 168 QRSD: 82 QT: 422 QTc: 403 Glen: P: 40 TX: 168 QRS: 6 T: 52 INTERPRETIVE STATEMENTS: Sinus bradycardia Otherwise normal ECG Compared to ECG 06/28/2015 22:47:01 Sinus rhythm no longer present T-wave abnormality no longer present Electronically Signed On 05-04-24 11:04:41 CDT by Jamal García
== END 2024-05-03 10:59 | disposition home or self-care (01) ==
LOC: CCL 06:45
PROVIDERS: ATTEND Internal Medicine
DX: I25.10 Atherosclerotic heart disease of native coronary artery without angina pectoris (principal); I34.0 Nonrheumatic mitral (valve) insufficiency; I71.21 Aneurysm of the ascending aorta, without rupture; R00.2 Palpitations; I10 Essential (primary) hypertension; Z79.899 Other long term (current) drug therapy; Z88.1 Allergy status to other antibiotic agents; Z88.2 Allergy status to sulfonamides; Z88.8 Allergy status to other drugs, medicaments and biological substances
CPT/HCPCS: 93005; 85025; 80048; 36415; 85610; 85730; 71046; 93458; 76937; C1893; Q9966; J1644; J2003; J2250; J3010; J7040; 99152; J0461